=== PATIENT | female | born 1965 | race Caucasian/White ===

== ENCOUNTER 2016-11-18 09:56 | Outpatient (CLI) | payer OTHER ==
--- NOTE | 2016-11-18 12:38 | DIAGNOSTIC IMAGING REPORT ---
PROCEDURE: CT ABDOMEN/PELVIS W/O CONTRAST INDICATION: Acute left flank pain and microhematuria x 7 days, initial encounter. TECHNIQUE: Noncontrast axial images were obtained of the entire abdomen and pelvis with sagittal and coronal reformations. COMPARISON: None. FINDINGS: ABDOMEN: Normal kidneys and ureters without evidence of calculi. No hydronephrosis or perinephric edema. Cholecystectomy. Liver, pancreas, spleen, adrenal glands and aorta are normal. There is some fluid in the cecum. Lung bases are clear. Normal heart size. PELVIS: Normal appendix. Left pelvic surgical clip. 1.5 cm left ovarian cyst. Uterus and bladder are normal. No free fluid or inflammatory changes. Bones are unremarkable. IMPRESSION: 1. No evidence of urinary calculi 2. Cholecystectomy 3. Fluid in the cecum which may represent enterocolitis 4. 1.5 cm left ovarian cyst. 5. Results discussed with Dr. Craft. All CT scans at this facility use dose modulation, iterative reconstruction, and/or weight-based dosing when appropriate to reduce radiation dose to as low as reasonably achievable.
[2016-12-28] MEDS ORDERED: TOPAMAX50 MG PO (10:03)
[2016-12-28] MEDS ORDERED: IMITREX50 MG PO (10:06)
[2016-12-31] MEDS ORDERED: NORCO1 TA1 PO (13:07)
== END 2016-11-18 23:00 ==
LOC: CT SRH 09:56
DX: R10.9 Unspecified abdominal pain (principal); N83.202 Unspecified ovarian cyst, left side; Z90.49 Acquired absence of other specified parts of digestive tract